=== PATIENT | female | born 1990 ===

== ENCOUNTER 2019-09-03 07:03 | Emergency (ER) | payer SELFPAY ==
--- NOTE | 2019-09-03 07:05 | UC ---
General HPI - HPI Summary HPI Summary: 29 yo female c/o sore throat, mild cough, n/v - started last night. No rash. She is traveling on a extended vacation, stopping in [place] en route to [place]. [place]. 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 No diarrhea. No urinary sx. - History of Current Complaint Stated Complaint: VOMITING Time Seen by Provider: 09/03/19 07:04 Hx Obtained From: Patient - Allergy/Home Medications Allergies/Adverse Reactions: Allergies Allergy/AdvReac Type Severity Reaction Status Date / Time latex Allergy Hives Verified 09/03/19 07:15 Home Medications: Home Medications Rivaroxaban TAB(*) [Xarelto 20 mg] 1 tab PO DAILY 09/03/19 [History Confirmed ] Vortioxetine Hydrobromide [Trintellix] 1 tab PO DAILY 09/03/19 [History Confirmed 09/03/19] PMH/Surg Hx/FS Hx/Imm Hx Previously Healthy: Yes - Family History Known Family History: Positive: Non-Contributory Review of Systems All Other Systems Reviewed And Are Negative: Yes Constitutional: Positive: Fever, Fatigue Skin: Positive: Negative Eyes: Positive: Negative ENT: Positive: Other - see hpi Respiratory: Positive: Other - see hpi Cardiovascular: Positive: Negative Gastrointestinal: Positive: Negative Genitourinary: Positive: Negative Motor: Positive: Negative Neurovascular: Positive: Negative Musculoskeletal: Positive: Negative Neurological: Positive: Negative Psychological: Positive: Negative Is Patient Immunocompromised?: No Physical Exam Triage Information Reviewed: Yes Appearance: Well-Appearing, Well-Nourished Vital Signs Reviewed: Yes Eye Exam: Normal ENT: Positive: Pharyngeal erythema, Nasal congestion, TM dull, Uvula midline, Other - R thyroid swelling. Neck exam: Normal Neck: Positive: Supple, Nontender Respiratory Exam: Normal Respiratory: Positive: Chest non-tender, Lungs clear, Normal breath sounds, No respiratory distress, No accessory muscle use Cardiovascular Exam: Normal Cardiovascular: Positive: RRR, Brisk Capillary Refill Abdominal Exam: Other - + nauseas. + inc bs. Soft nd nt, no cvat Abdomen Description: Positive: Nontender Musculoskeletal Exam: Normal - gait steady moves x 4 ext's Neurological Exam: Normal Psychological Exam: Normal Skin Exam: Normal - nondiaphoretic no visible or reported rash Course/Dx - Course Course Of Treatment: Tolerating fluids. Temp decreased. Zofran -> feels better. Blood work ordered - cmp, cbc. Will remain in [place] for the next day or two until feeling better. Aware to go to the Emergency Department for worse or new problems. Questions as posed answered to the best of my ability. - Diagnoses Provider Diagnosis: Fever, Nausea & vomiting Discharge ED - Sign-Out/Discharge Documenting (check all that apply): Patient Departure All imaging exams completed and their final reports reviewed: No Studies - Discharge Plan Condition: Stable Disposition: HOME Prescriptions: Ondansetron ODT TAB* [Zofran 4 MG Odt TAB*] 4 mg PO Q8H PRN #15 tab.odt PRN Reason: Vomiting Patient Education Materials: Dehydration (ED), Gastroenteritis (ED) Referrals: No Primary Care Phys,NOPCP [Primary Care Provider] - Additional Instructions: Please go to the Emergency Department for any worse or new problems. Seek medical attention for worse or new problems. Blood work in the lab. Zofran today. Hydrate as much as possible. - Billing Disposition and Condition Condition: STABLE Disposition: Home
[2019-09-03 07:15] VITALS: BP 131/79
[2019-09-03 07:39] LABS: Influenza A Molecular NEGATIVE (Negative); Influenza B Molecular NEGATIVE (Negative)
[2019-09-03] MEDS ORDERED: Ondansetron ODT TAB* 4 MG PO ONE (09:01)
[2019-09-03 13:42] LABS: ABS Eosinophils 0.3 10^3/ul (0-0.6); ABS Lymphocytes 2.3 10^3/ul (1.0-4.8); ABS Monocytes 0.6 10^3/ul (0-0.8); ABS Neutrophils 4.8 10^3/ul (1.5-7.7); Albumin 4.6 g/dL (3.2-5.2); Calcium 9.7 mg/dL (8.6-10.3); Eosinophil % 4.3 %; Hematocrit 41 % (35-47); Hemoglobin 14.5 g/dL (12.0-16.0); Lymphocyte % 28.3 %; Mean Corpuscular HGB Conc 36 g/dL (31-36); Mean Corpuscular Hemoglobin 34 pg (27-31); Mean Corpuscular Volume 94 fL (80-97); Mean Platelet Volume 7.8 fL (7.4-10.4); Platelet Count 287 10^3/uL (150-450); Potassium 3.9 mmol/L (3.5-5.0); Red Blood Count 4.31 10^6 /uL (3.70-4.87); Red Cell Distribution Width 13 % (10-15); Total Bilirubin 0.6 mg/dL (0.2-1.0)
[2019-09-03 13:47] LABS: Albumin/Globulin Ratio 1.8 (1-3); BUN/Creatinine Ratio 21.8 (8-20); EGFR African American 160.4 (>60); EGFR Non-African American 132.6 (>60); Globulin 2.6 g/dL (2-4); Total Protein 7.2 g/dL (6.4-8.9)
== END 2019-09-03 10:08 | disposition home or self-care (01) ==
LOC: UCEAST 07:03
DX: R11.2 Nausea with vomiting, unspecified (principal); R50.9 Fever, unspecified; J02.9 Acute pharyngitis, unspecified; R05 Cough; Z91.040 Latex allergy status
CPT/HCPCS: 36415; 80053; 81003; 85025; 87651; 99202; A9270-GY; G0463